=== PATIENT | male | born 1965 | race Caucasian/White ===

== ENCOUNTER 2017-12-21 05:18 | Inpatient (IN) | payer OTHER ==
[2017-12-21] VITALS (17 sets, daily range): BP systolic 112–154; BP diastolic 58–97
[~2017-12-21] VITALS: Ht 180.3 cm; Wt 133.4 kg
[2017-12-21] MEDS ORDERED: TRANEXAMIC ACID 1,500 MG in IV NS 0.9% 50 ML IV ONE (07:00)
[2017-12-21] MEDS ORDERED: MIDAZOLAM HCL 2 MG/2ML VIAL ONE ×3 (07:16→13:17)
--- NOTE | 2017-12-21 07:46 | NUR ---
MS/RN OPENING NOTE PATIENT IN BED IN STABLE CONDITION. A/O X 4. NO SIGNS OF ACUTE DISTRESS. NO COMPLAIN OF PAIN OR DISCOMFORT. ADMITTED FOR LEFT KNEE ARTHROPLASTY SCHEDULED TO BE DONE TODAY AROUND 9:30AM. CONTINENT OF BOWEL AND BLADDER. NOTED WITH INTACT SKIN. ALL NEEDS ATTENDED TO. CALL LIGHT WITHIN REACH. WILL CONTINUE TO MONITOR TO ENSURE SAFETY.
[2017-12-21] MEDS ORDERED: HYDR-548 PO (08:45)
[2017-12-21] MEDS ORDERED: AMLO1CAP5 PO (08:45)
[2017-12-21] MEDS ORDERED: OXYC40TA50 PO (08:45)
[2017-12-21] MEDS ORDERED: ALLO300T2 PO (08:45)
[2017-12-21] MEDS ORDERED: IV NS 0.9% 1,000 ML IV PRN (11:31)
[2017-12-21] MEDS ORDERED: MAGNESIUM HYDROXIDE 30 ML UDC PO PRN (12:00)
[2017-12-21] MEDS ORDERED: ZOLPIDEM TARTRATE 5 MG TABLET PO PRN (12:00)
[2017-12-21] MEDS ORDERED: ACETAMINOPHEN ES 500 MG TABLET PO ONE (12:00)
[2017-12-21] MEDS ORDERED: CELECOXIB 100 MG CAPSULE PO ONE (12:00)
[2017-12-21] MEDS ORDERED: HYDROMORPHONE INJ 0.5 MG/0.5 ML SYRINGE IV PRN (12:00)
[2017-12-21] MEDS ORDERED: Z GUARD REMEDY 2 OZ OINT TP PRN (12:00)
[2017-12-21] MEDS ORDERED: ACETAMINOPHEN 325 MG TABLET PO PRN (12:00)
[2017-12-21] MEDS ORDERED: METOCLOPRAMIDE HCL 10 MG/2 ML VIAL IV ONE (12:00)
[2017-12-21] MEDS ORDERED: MAG HYDROX/AL HYDROX/SIMETH 30 ML UDC PO PRN (12:00)
[2017-12-21] MEDS ORDERED: oxyCODONE HCL SR 10MG TAB.SR.12H PO ONE (12:00)
[2017-12-21] MEDS ORDERED: ONDANSETRON HCL/PF 4 MG/2 ML VIAL IVP PRN ×2 (12:00→19:30)
[2017-12-21] MEDS ORDERED: MORPHINE SULFATE INJ 2 MG/ML DISP.SYRIN IV PRN (12:00)
[2017-12-21] MEDS ORDERED: KETOROLAC TROMETHAMINE INJ 30 MG/ML VIAL ONE ×2 (12:42→19:02)
[2017-12-21] MEDS ORDERED: MORPHINE SULFATE INJ 4 MG/ML DISP.SYRIN ONE (12:43)
[2017-12-21] MEDS ORDERED: BUPIVACAINE 0.5 % PF 150 MG/30 ML VIAL ONE (12:43)
[2017-12-21] MEDS ORDERED: BACITRACIN 50000 UNITS/VIAL ONE (12:43)
--- NOTE | 2017-12-21 12:45 | NUR ---
MS/RN PATIENT LEFT FOR SURGERY PATIENT TRANSFERRED TO OR FOR LEFT KNEE ARTHROPLASTY PROCEDURE ACCOMPANIED BY 2 OR STAFF VIA BED. A/O X 4. NO SIGNS OF ACUTE DISTRESS. NO COMPLAIN OF PAIN OR DISCOMFORT.
[2017-12-21] MEDS ORDERED: FENTANYL PF 250MCG/5ML AMPUL ONE (13:17)
[2017-12-21] MEDS ORDERED: METOCLOPRAMIDE HCL 10 MG/2 ML VIAL ONE (13:17)
[2017-12-21 13:29] LABS: BASOPHILS # (AUTO) 0.1 /CMM (0.0-0.2); BASOPHILS % (AUTO) 0.8 % (0.0-2.0); EOSINOPHILS # (AUTO) 0.2 /CMM (0.0-0.7); EOSINOPHILS % (AUTO) 3.5 % (0.0-6.0); HEMATOCRIT 40 % (39-51); HEMOGLOBIN 13.9 g/dL (13.5-17.5); LYMPHOCYTES # (AUTO) 2.1 /CMM (0.8-4.8); LYMPHOCYTES % (AUTO) 33.2 % (20.0-44.0); MEAN CORPUSCULAR HEMOGLOBIN 32 PG (26.0-33.0); MEAN CORPUSCULAR HGB CONC 35 g/dl (31.0-36.0); MEAN CORPUSCULAR VOLUME 93 fL (80-96); MONOCYTES # (AUTO) 0.5 /CMM (0.1-1.30); MONOCYTES % (AUTO) 8.5 % (2.0-12.0); NEUTROPHILS # (AUTO) 3.4 /CMM (1.8-8.9); PLATELET COUNT (AUTO) 205 /CMM (150-450); RDW COEFFICIENT OF VARIATION 12.7 (11.5-15.0); WHITE BLOOD COUNT (AUTO) 6.3 K/uL (4.3-11.0)
[2017-12-21 13:33] LABS: CALCIUM, SERUM 8.7 mg/dL (8.5-10.1); CREATININE 1.5 mg/dL (0.6-1.3); MAGNESIUM 1.9 mg/dL (1.8-2.4); POTASSIUM 4.1 mmol/L (3.5-5.1)
[2017-12-21] MEDS ORDERED: SEVOFLURANE 250 ML BOTTLE IH ONE (13:35)
[2017-12-21] MEDS ORDERED: ENOXAPARIN SODIUM 40 MG/0.4 ML DISP.SYRIN SQ SCH (13:37)
[2017-12-21 13:38] LABS: INR 0.9 (0.87-1.13)
--- NOTE | 2017-12-21 13:40 | NUR ---
MS/RN LOVENOX NON ADMIN UNABLE TO ADMINISTER LOVENOX SECONDARY TO PATIENT IN OR FOR LEFT KNEE ARTHROPLASTY.
[2017-12-21] MEDS ORDERED: TRANEXAMIC ACID 1,500 MG in SODIUM CHLORIDE IRRIG SOLUTION 85 ML IR ONE (14:30)
[2017-12-21] MEDS ORDERED: ANESTHESIA TRAY IN PYXIS 1 EA TRAY MC ONE (18:01)
--- NOTE | 2017-12-21 18:47 | NUR ---
MS/RN CLOSING NOTE SPOKE WITH OSMAN FROM O.R. PER OSMAN PATIENT STILL IN O.R. ROOM HAVING LEFT KNEE ARTHROPLASTY PROCEDURE. WILL ENDORSE TO NEXT SHIFT FOR CONTINUITY OF CARE.
[2017-12-21] MEDS ORDERED: HYDROMORPHONE 1 MG/1 ML DISP.SYRIN ONE (18:57)
[2017-12-21] MEDS ORDERED: AMBIEN 5 MG TABLET PO PRN (19:30)
[2017-12-21] MEDS ORDERED: IV D5/0.45 NACL 1,000 ML IV PRN (19:30)
[2017-12-21] MEDS ORDERED: KETOROLAC TROMETHAMINE INJ 30 MG/ML VIAL IV ONE (19:30)
[2017-12-21] MEDS ORDERED: HYDROCODONE/APAP 5/325MG 1 EACH TABLET PO PRN (19:30)
[2017-12-21] MEDS ORDERED: COLACE 100 MG CAPSULE PO PRN (19:30)
[2017-12-21] MEDS ORDERED: oxyCODONE IR immediate release 5 MG PO ONE (19:30)
[2017-12-21] MEDS ORDERED: TYLENOL 650 MG TABLET PO PRN (19:30)
[2017-12-21] MEDS ORDERED: DULCOLAX 10 MG/SUPP.RECT RC PRN (19:30)
--- NOTE | 2017-12-21 19:30 | NUR ---
MS RN NOTES: RECEIVED PATIENT FROM SENIOR AIR DIRECTORMICHAEL. S/P LEFT TOTAL KNEE ARTHROPLASTY WITH REMOVAL OF PREVIOUS HARDWARE BY DR WILKINS. PATIENT WAS TRANSFERRED TO MS FLOOR VIA GENO, AOX4, ON ROOM AIR, BREATHING EVEN AND UNLABORED. APPEARS CALM AND IN NO DISTRESS, BUT STATES THAT HE HAS MODERATE PAIN OVER LEFT KNEE SCALED AT 5-6/10. PIV OVER LEFT HAND G 20 INTACT AND PATENT TO FLUSH. GUSTAFSON CATHETER IN PLACE DRAINING CLEAR YELLOW URINE. ATTACHED TO VS MONITORING MACHINE AND O2 SAT MONITORING, VS STABLE. INITIAL O2 AT 92%, HOOKED TO O2 AT 2 LPM VIA NC. LEFT KNEE WITH CLEAN AND INTACT DRESSING, SECURED WITH DAVID BANDAGE AND IN KNEE IMMOBILIZER. ELEVATED LEG TO COMFORT. PROVIDED FOR COMFORT AND SAFETY. BED IN LOWEST AND LOCKED POSITION. SIDERAILS UP X3, CALL LIGHT WITHIN REACH. WILL CONT TO MONITOR.
[2017-12-21] MEDS: ASPIRIN 600 MG/SUPP.RECT RC ONE ×2 (20:21→22:55)
--- NOTE | 2017-12-21 20:30 | NUR ---
RN NOTES: KETOROLAC IV WAS NON ADMIN IN [facility]/ NOT ADMINISTERED AT THIS TIME. PER LEILA RODRIGUEZ FROM OR, KETOROLAC 30 MG IV WAS LAST GIVEN AT 1900 PM AT RR.
--- NOTE | 2017-12-21 20:34 | NUR ---
RN NOTES: PT'S PAIN OVER LEFT KNEE SCALED AT 5-6/10. AGREED TO TAKE THE OXYCODONE 5 MG PO BUT REFUSED THE ASA SUPPOSITORY. RISKS AND BENEFITS EXPLAINED, PT STILL REFUSING.
--- NOTE | 2017-12-21 21:00 | NUR ---
RN NOTES: CIRCULATION, MOTION, SENSATION: PATIENT'S PEDAL PULSES CHECKED, BILATERALLY STRONG, NORMAL. CAP REFILL ON LE FEET/ TOES LESS THAN 3 SEC. PATIENT NOTED TO HAVE NORMAL SENSATION ON LEFT FOOT, HEELS AND TOES, SAME WITH THE RIGHT FOOT. PATIENT HAS MILD WEAKNESS OF LEFT LOWER EXTREMITY. WITH LEFT KNEE IMMOBILIZER, DRESSING INTACT.
[2017-12-21] MEDS: CELECOXIB 100 MG CAPSULE PO SCH (21:52)
--- NOTE | 2017-12-21 22:00 | NUR ---
RN NOTES: CIRCULATION, MOTION, SENSATION: PATIENT'S PEDAL PULSES CHECKED, BILATERALLY STRONG, NORMAL. CAP REFILL ON LE FEET/ TOES LESS THAN 3 SEC. PATIENT STILL WITH NORMAL SENSATION ON LEFT FOOT, HEELS AND TOES, SAME WITH THE RIGHT FOOT. PATIENT HAS MILD WEAKNESS OF LEFT LOWER EXTREMITY. WITH LEFT KNEE IMMOBILIZER, DRESSING INTACT. NO BLEEDING OR DISCHARGE NOTED FROM DRESSING.
[2017-12-21] MEDS ORDERED: DIAZ10TA4 PO (22:02)
[2017-12-21] MEDS ORDERED: GABA800T2 PO (22:02)
--- NOTE | 2017-12-21 22:15 | NUR ---
RN NOTES: SPOKE TO DR MERCADO RE PATIENT'S REQUEST TO HAVE GABAPENTIN 800 MG TID, ORDER MADE. ONE DOSE TO BE GIVEN NOW.
[2017-12-21] MEDS ORDERED: GABAPENTIN 400 MG CAPSULE PO ONE (22:30)
[2017-12-21] MEDS: ANCEF 1 G in IV D5W 50 ML IV SCH (22:55)
[2017-12-21] MEDS: HYDROMORPHONE INJ 0.5 MG/0.5 ML SYRINGE IV PRN (23:03)
[2017-12-22] VITALS (8 sets, daily range): BP systolic 125–143; BP diastolic 61–82
[2017-12-22] MEDS: KETOROLAC TROMETHAMINE INJ 30 MG/ML VIAL IV PRN ×2 (03:19→23:44)
[2017-12-22] MEDS: ANCEF 1 G in IV D5W 50 ML IV SCH (06:36)
[2017-12-22 06:55] LABS: BASOPHILS % (AUTO) 0.2 % (0.0-2.0); HEMATOCRIT 33 % (39-51); HEMOGLOBIN 11.2 g/dL (13.5-17.5); LYMPHOCYTES # (AUTO) 1.2 /CMM (0.8-4.8); LYMPHOCYTES % (AUTO) 8.5 % (20.0-44.0); MEAN CORPUSCULAR HEMOGLOBIN 32 PG (26.0-33.0); MEAN CORPUSCULAR HGB CONC 34 g/dl (31.0-36.0); MEAN CORPUSCULAR VOLUME 94 fL (80-96); MONOCYTES # (AUTO) 0.7 /CMM (0.1-1.30); MONOCYTES % (AUTO) 4.9 % (2.0-12.0); NEUTROPHILS # (AUTO) 11.7 /CMM (1.8-8.9); NEUTROPHILS % (AUTO) 86.4 % (43.0-81.0); PLATELET COUNT (AUTO) 176 /CMM (150-450); RDW COEFFICIENT OF VARIATION 12.6 (11.5-15.0); RED BLOOD CELL COUNT(AUTO) 3.49 MIL/uL (4.5-6.0); WHITE BLOOD COUNT (AUTO) 13.6 K/uL (4.3-11.0)
[2017-12-22 06:59] LABS: CALCIUM, SERUM 7.7 mg/dL (8.5-10.1); CREATININE 1.7 mg/dL (0.6-1.3); MAGNESIUM 1.9 mg/dL (1.8-2.4); PHOSPHORUS 2.3 mg/dL (2.5-4.9); POTASSIUM 5.3 mmol/L (3.5-5.1)
--- NOTE | 2017-12-22 07:02 | NUR ---
MS RN CLOSING NOTES: PATIENT IN BED, AOC4, ON O2 AT 2 LPM VIA NC, BREATHING EVEN AND UNLABORED. PIV OVER L HAND G 20 INTACT AND PATENT, INFUSING WELL WITH D5 1/2 NS RUNNING AT 75 ML/HR. LEFT KNEE WITH DRESSING, IMMOBILIZER IN PLACE. LE DORSAL PEDAL PULSES CHECKED, BILATERALLY STRONG AND EQUAL, CAP REFILL LESS THAN 3 SEC. ALSO CHECKED REGULARLY FOR SENSATION. DUE MEDS GIVEN, PROVIDED FOR COMFORT AND SAFETY. BED IN LOWEST AND LOCKED POSITION, SIDERAILS UP X 3. CALL LIGHT WITHIN REACH. WILL ENDORSE TO AM RN FOR JOSE RAFAEL.
[2017-12-22 07:29] LABS: THYROID STIMULATING HORMONE 0.162 uIU/mL (0.358-3.74)
--- NOTE | 2017-12-22 08:00 | NUR ---
MED SURG 3 AM NOTE RECEIVED PATIENT IN BED RESTING, EASILY AROUSED. ALERT AND ORIENTED X 3. VITAL SIGNS STABLE, RESPIRATIONS EVEN AND UNLABORED, ON 2L OXYGEN VIA NASAL CANNULA WITH OXYGEN SATURATION OF 96%. LEFT HAND 20G PATENT AND INFUSING D5 1/2 NS, NO SIGNS OR SYMPTOMS OF COMPLICATIONS. GUSTAFSON CATHETER PATENT AND FREE FLOWING YELLOW CLEAR URINE. NO SIGNS OR SYMPTOMS OF PAIN OR DISTRESS. LEFT KNEE SURGICAL SITE DRESSING INTACT WITHOUT EVIDENCE OF DRAINAGE OR BLEEDING. BED IN LOW POSITION WITH SIDE RAILS UP X 2, CALL LIGHT WITHIN REACH.
[2017-12-22] MEDS: IV NS 0.9% 1,000 ML IV PRN ×3 (08:20→19:49)
[2017-12-22] MEDS: CELECOXIB 100 MG CAPSULE PO SCH ×2 (08:25→16:33)
[2017-12-22] MEDS: PANTOPRAZOLE 40 MG VIAL IV SCH (08:25)
[2017-12-22] MEDS: ASPIRIN 325 MG TABLET PO SCH ×2 (08:25→16:33)
[2017-12-22] MEDS: GABAPENTIN 400 MG CAPSULE PO SCH ×3 (08:25→16:34)
[2017-12-22] MEDS: HYDROMORPHONE INJ 0.5 MG/0.5 ML SYRINGE IV PRN (08:28)
[2017-12-22] MEDS ORDERED: K PHOS NEUTRAL 250 MG TABLET PO ONE (11:30)
[2017-12-22] MEDS ORDERED: HYDROCODONE/APAP 10/325MG 1 EA TABLET PO PRN (16:00)
[2017-12-22] MEDS ORDERED: Medication Not On Formulary EA (Gabapentin 1 TAB) PO SCH (17:00)
--- NOTE | 2017-12-22 18:20 | NUR ---
TOOL FILER HAND 3 CLOSING NOTE PATIENT IN BED, ALERT AND ORIENTED X 3. VITAL SIGNS STABLE, RESPIRATIONS EVEN AND UNLABORED AND ON ROOM AIR. PATIENT DENIES PAIN OR DISTRESS. LEFT HAND 20G PATENT AND INFUSING 0.9NS AT 200ML/HOUR, WITHOUT COMPLICATION. LEFT KNEE WITH DRESSING INTACT. BILATERAL DORSAL PEDAL PULSES PALPABLE 2+ AND EQUAL BILATERALLY, BLE TEMPERATURE WARM TO TOUCH, CAPILLARY REFILL LESS THAN 3 SECONDS. ALL MEDS GIVEN AND NEEDS MET. BED IN LOW POSITION WITH SIDE RAILS UP X 2, CALL LIGHT WITHIN REACH.
--- NOTE | 2017-12-22 19:50 | NUR ---
MS/RN OPENING NOTES PATIENT AWAKE, ALERTX3, ABLE TO VERBALIZE NEEDS. NO PAIN REPORTED AND NO GRIMACE.REPORTED TOLERABLE PAIN. ON CPM MACHINE ORDERED FOR INTERMITTENT USE TOLERATED. IV ON LEFT HAND WITH NO S/S OF INFILTRATION. IV FLUIDS REPLACED. SKIN WARM TO TOUCH, KEEP PATIENT COMFORTABLE. BED IN LOCK POSITION. GUSTAFSON CATHETER DRAINING LIGHT YELLOW COLOR URINE WILL CONTINUE TO MONITOR. CALL LIGHTS WITHIN REACH. BED IN LOCK POSITION.
--- NOTE | 2017-12-22 20:00 | NUR ---
MS/RN NOTES POTASSIUM LEVEL ELEVATED AT 5.3h, AM RN ENDORSED, MD ANTONIO CONTACTED AND ORDERED FOR KAYEXELATE 30G PO AND CHECK POTASSIUM LEVEL IN AM. CHARGE NURSE INFORM FOR MEDICATION ORDER.
[2017-12-22] MEDS ORDERED: SODIUM POLYSTYRENE SULFONATE 15 G/60 ML BOTTLE PO ONE (21:00)
[2017-12-22] MEDS ORDERED: oxyCODONE HCL SR 40MG TAB.SR.12H PO PRN (21:00)
--- NOTE | 2017-12-22 21:34 | NUR ---
MS/RN NOTES PATIENT REPORTED PAIN ON LEFT LEG,06/28, NORCO 10-325MG PO GIVEN, WILL MONITOR EFFECTIVENESS, KAYEXELATE 30G GOIVEN PO, PATIENT ABLE TO TAKE PO MED. HOB ELEVATED.
--- NOTE | 2017-12-22 22:06 | NUR ---
MS/RN NOTES PATIENT REQUESTED MEDICATION FOR SLEEP, ALERT, ORIENTED, ABLE TO VERBALIZE NEEDS, WILL MONITOR AND CHECK EFFECTIVENESS.
--- NOTE | 2017-12-22 23:44 | NUR ---
MS/RN NOTES PATIENT REPORTED PAIN AND AROUSE FROM SLEEP, NEEDED MEDICATION FOR SEVERE PAIN TO GIVE.
[2017-12-23] MEDS: IV NS 0.9% 1,000 ML IV PRN ×2 (00:45→06:11)
[2017-12-23] MEDS: HYDROMORPHONE INJ 0.5 MG/0.5 ML SYRINGE IV PRN ×3 (02:05→14:31)
--- NOTE | 2017-12-23 02:28 | NUR ---
ms/rn notes patient awake, reported improve pain, observe watching tv and will monitor changes.
[2017-12-23 06:16] LABS: BASOPHILS % (AUTO) 0.4 % (0.0-2.0); EOSINOPHILS # (AUTO) 0.1 /CMM (0.0-0.7); EOSINOPHILS % (AUTO) 0.4 % (0.0-6.0); HEMATOCRIT 29 % (39-51); LYMPHOCYTES # (AUTO) 2.2 /CMM (0.8-4.8); LYMPHOCYTES % (AUTO) 19.1 % (20.0-44.0); MEAN CORPUSCULAR HEMOGLOBIN 33 PG (26.0-33.0); MEAN CORPUSCULAR HGB CONC 35 g/dl (31.0-36.0); MEAN CORPUSCULAR VOLUME 94 fL (80-96); MONOCYTES # (AUTO) 0.8 /CMM (0.1-1.30); MONOCYTES % (AUTO) 7.3 % (2.0-12.0); NEUTROPHILS # (AUTO) 8.4 /CMM (1.8-8.9); NEUTROPHILS % (AUTO) 72.8 % (43.0-81.0); PLATELET COUNT (AUTO) 154 /CMM (150-450); RDW COEFFICIENT OF VARIATION 12.9 (11.5-15.0); RED BLOOD CELL COUNT(AUTO) 3.08 MIL/uL (4.5-6.0); WHITE BLOOD COUNT (AUTO) 11.6 K/uL (4.3-11.0)
[2017-12-23 06:33] LABS: ALBUMIN 2.7 g/dL (3.4-5.0); BILIRUBIN,TOTAL 0.2 mg/dL (0.2-1.0); CALCIUM, SERUM 7.7 mg/dL (8.5-10.1); CREATININE 1.4 mg/dL (0.6-1.3); PHOSPHORUS 2.1 mg/dL (2.5-4.9); POTASSIUM 4.5 mmol/L (3.5-5.1); TOTAL PROTEIN, SERUM 5.9 g/dL (6.4-8.2)
--- NOTE | 2017-12-23 06:36 | NUR ---
308 ms/rn notes Patient in bed, pain managment monitoirng, reported pain , monitoring for effectiveness,Unable to sleep well even after given prescribed Ambien. Assisted to baathroom. Will continue monitoring, Safety interventions provided. Call lights within reach, bed in lock positon. Walker used for safety. will continue to monitor, Will endorse to am rn for ninoska.
--- NOTE | 2017-12-23 07:12 | NUR ---
MS RN OPENING NOTES RECEIVED PT FROM NIGHTSHIFT NURSE IN STABLE CONDITION. PT IS A/O X4. NO SOB OR SIGNS OF DISTRESS NOTED. BREATHING IS EVEN AND UNLABORED. PT IS ON RA AND SATING WELL ABOVE 95%. GUSTAFSON CATHETER NOTED TO BE DRAINING CLEAR YELLOW URINE. WILL REMOVE @ 1300 ORDERED. SURGICAL DRESSING NOTED TO BE CLEAN, DRY, AND INTACT. PT DENIES ANY PAIN AT THIS TIME. IV NOTED TO BE PATENT AND INTACT INFUSING NS @200ML. PT TOLERATING INFUSION WELL. NO REDNESS OR SIGNS OF INFILTRATION NOTED. BED IN LOW LOCKED POSITION, SIDE RAILS UP X2, CALL LIGHT WITHIN REACH. WILL CONTINUE TO MONITOR
[2017-12-23 08:00] VITALS: BP 164/92
[2017-12-23] MEDS: GABAPENTIN 400 MG CAPSULE PO SCH ×2 (08:58→13:39)
[2017-12-23] MEDS: ASPIRIN 325 MG TABLET PO SCH (08:58)
[2017-12-23 08:59] VITALS: BP 164/92
[2017-12-23] MEDS: CELECOXIB 100 MG CAPSULE PO SCH (08:59)
[2017-12-23] MEDS ORDERED: ALLOPURINOL 100 MG TABLET PO SCH (09:00)
[2017-12-23] MEDS ORDERED: AMLODIPINE BESYLATE 5 MG TABLET PO SCH (09:00)
[2017-12-23] MEDS ORDERED: BENAZEPRIL HCL 10 MG TABLET PO SCH (09:00)
[2017-12-23] MEDS: PANTOPRAZOLE 40 MG VIAL IV SCH (09:01)
[2017-12-23] MEDS ORDERED: K PHOS NEUTRAL 250 MG TABLET PO ONE (13:00)
--- NOTE | 2017-12-23 13:27 | NUR ---
MS RN NOTES GUSTAFSON CATHETER REMOVED PER MD ORDER AND PROTOCOL. PT ABLE TO VOING 100CC OF CLEAR YELLOW URINE. WILL CONTINUE TO MONITOR
--- NOTE | 2017-12-23 15:39 | NUR ---
MS PNEUMATIC TOOL OPERATOR NOTES PT WAS DISCHARGED FROM FACILITY IN STABLE CONDITION. ALL NEEDS WERE MET DURING SHIFT AND ORDERS CARRIED OUT ACCORDINGLY. ALL DUE MEDS GIVEN. DISCHARGE INSTRUCTIONS PROVIDED TO PT USING EXIT CARE. PT VERBALIZED UNDERSTANDING OF ALL DISCHARGE INSTRUCTIONS AND SIGNED ALL RESPECTIVE PAPERWORK. HE LEFT WITH ALL BELONGINGS. SURGICAL DRESSING REMAINED CLEAN, DRY, AND INTACT. VITALS STABLE THROUGHOUT SHIFT. HE WAS SAFELY ESCORTED OFF THE HOSPITAL PREMISES AND LEFT VIA PRIVATE VEHICLE DRIVEN BY HIS DAUGHTER
== END 2017-12-23 15:15 | disposition home or self-care (01) | DRG 469 ==
LOC: DS 05:18 → MED 05:34
PROVIDERS: ADMIT Orthopaedic Surgery; ATTEND Orthopaedic Surgery
PROC: 0SRD0J9 Replacement of Left Knee Joint with Synthetic Substitute, Cemented, Open Approach (ICD-10-PCS; principal; 2017-12-21 13:00)
DX: M17.12 Unilateral primary osteoarthritis, left knee (principal); N17.0 Acute kidney failure with tubular necrosis; E66.01 Morbid (severe) obesity due to excess calories; D68.59 Other primary thrombophilia; Z68.41 Body mass index [BMI] 40.0-44.9, adult; E87.5 Hyperkalemia; N18.3 Chronic kidney disease, stage 3 (moderate); I12.9 Hypertensive chronic kidney disease with stage 1 through stage 4 chronic kidney disease, or unspecified chronic kidney disease; Z87.891 Personal history of nicotine dependence; E66.9 Obesity, unspecified; R79.89 Other specified abnormal findings of blood chemistry; E05.90 Thyrotoxicosis, unspecified without thyrotoxic crisis or storm
CPT/HCPCS: 36415; 71045-TC; 73560-TC; 80048-TC; 80053-TC; 80061-TC; 83735-TC; 84100-TC; 84443-TC; 85025-TC; 85610-TC; 85730-TC; 86850-TC; 86921-TC; 87081-TC; 94799-TC; 97116-TC; 97530-TC; 97760-TC; A4217; C9113; J0690; J1170; J1885; J2250; J2270; J2765; J3010; J3490; J7030; J7060; Z7610

== ENCOUNTER 2018-03-04 19:07 | Inpatient (IN) | payer OTHER ==
[~2018-03-04] VITALS: Ht 180.3 cm; Wt 142.9 kg
[~2018-03-04 19:07] MED LIST: ALLO300T2 PO; AMLO1CAP5 PO; DIAZ10TA4 PO; GABA800T2 PO; HYDR-548 PO; OXYC40TA50 PO
--- NOTE | 2018-03-04 19:20 | NUR ---
PT BB SELF FROM HOME C/O LL KNEE REDNESS AND PAIN 04/28. PT STATES HE WAS SENT BY HIS SURGEON WHO PERFORMED THE KNEE SURGERY. PT STATES HE WAS RECENTLY DISCHARGED FROM AN ACUTE HOSPITAL FOR THE SAME ISSUE. MILD AMOUNT OF EXUDATE NOTED ON GAUZE. PT AMBULATED WITH STEADY GAIT TO ER BED 7. SKIN WNL. PT IS AAOX4. RESP EVEN AND UNLABORED. NO S/S OF ACUTE DISTRESS NOTED. PT GOWNED AND PLACED ON MONITOR. PT SAFETY AND COMFORT MEASURES IN PLACE. AWAITING MD FOR EVAL.
--- NOTE | 2018-03-04 19:57 | NUR ---
CALLED NURSING INTERNET RESEARCHER AND REQUESTED A MED SURG BED FOR THIS PT
[2018-03-04] MEDS ORDERED: IV NS 0.9% 1,000 ML BAG IV ONE (20:00)
[2018-03-04 20:06] LABS: BASOPHILS # (AUTO) 0.1 /CMM (0.0-0.2); BASOPHILS % (AUTO) 0.7 % (0.0-2.0); EOSINOPHILS % (AUTO) 2.1 % (0.0-6.0); HEMATOCRIT 40 % (39-51); HEMOGLOBIN 13.5 g/dL (13.5-17.5); LYMPHOCYTES # (AUTO) 1.7 /CMM (0.8-4.8); LYMPHOCYTES % (AUTO) 21.2 % (20.0-44.0); MEAN CORPUSCULAR HGB CONC 34 g/dl (31.0-36.0); MEAN CORPUSCULAR VOLUME 89 fL (80-96); MONOCYTES # (AUTO) 0.3 /CMM (0.1-1.30); MONOCYTES % (AUTO) 3.8 % (2.0-12.0); NEUTROPHILS # (AUTO) 5.7 /CMM (1.8-8.9); NEUTROPHILS % (AUTO) 72.2 % (43.0-81.0); PLATELET COUNT (AUTO) 328 /CMM (150-450); RDW COEFFICIENT OF VARIATION 13.6 (11.5-15.0); RED BLOOD CELL COUNT(AUTO) 4.48 MIL/uL (4.5-6.0); WHITE BLOOD COUNT (AUTO) 7.9 K/uL (4.3-11.0)
--- NOTE | 2018-03-04 20:09 | NUR ---
KASEY ALEXANDER SPOKE WITH DR. ANDINO REGARDING ADMISSION OF PT.
--- NOTE | 2018-03-04 20:34 | NUR ---
PT REFUSED PRE-OP CHECK LIST AT THIS TIME
[2018-03-04 20:37] LABS: ALBUMIN 3.5 g/dL (3.4-5.0); BILIRUBIN,DIRECT 0.1 mg/dL (0.0-0.2); BILIRUBIN,TOTAL 0.2 mg/dL (0.2-1.0); CALCIUM, SERUM 9.7 mg/dL (8.5-10.1); CREATININE 1.4 mg/dL (0.6-1.3); POTASSIUM 4.1 mmol/L (3.5-5.1); TOTAL PROTEIN, SERUM 8.8 g/dL (6.4-8.2)
--- NOTE | 2018-03-04 20:40 | NUR ---
PT REFUSED TO ANSWER QUESTIONS REGARDING PRE-OP CHECKLIST AND REQUESTS TO SPEAK TO THE SURGEON PRIOR TO SIGNING ANY PAPERS OR ANSWERING ANY QUESTIONS RELATED TO SURGERY.
[2018-03-04 20:58] LABS: INR 0.96 (0.87-1.13)
[2018-03-04] MEDS ORDERED: VANCOMYCIN 0.75 GM in IV D5W 250 ML IV SCH (21:00)
[2018-03-04] MEDS ORDERED: ACETAMINOPHEN 325 MG TABLET PO PRN (21:00)
[2018-03-04] MEDS ORDERED: Z GUARD REMEDY 2 OZ OINT TP PRN (21:00)
[2018-03-04] MEDS ORDERED: DIAZEPAM 10 MG TABLET PO SCH (21:00)
[2018-03-04] MEDS ORDERED: MAG HYDROX/AL HYDROX/SIMETH 30 ML UDC PO PRN (21:00)
[2018-03-04] MEDS ORDERED: HYDROCODONE/APAP 10/325MG 1 EA TABLET PO PRN (21:00)
[2018-03-04] MEDS ORDERED: PIPERACILLIN /TAZOBACTAM 3.375 G in IV D5W 100 ML IV SCH (21:00)
[2018-03-04] MEDS ORDERED: Medication Not On Formulary EA (Oxycodone Hcl (Oxycontin) 40 MG) PO PRN (21:00)
[2018-03-04] MEDS ORDERED: ONDANSETRON HCL/PF 4 MG/2 ML VIAL IVP PRN (21:00)
[2018-03-04] MEDS ORDERED: MAGNESIUM HYDROXIDE 30 ML UDC PO PRN (21:00)
[2018-03-04] MEDS ORDERED: DEXTROSE 50%-WATER 50 ML DISP.SYRIN IV PRN (21:00)
--- NOTE | 2018-03-04 21:00 | NUR ---
SURGICAL TEAM BEDSIDE TO TAKE PT TO OR.
--- NOTE | 2018-03-04 21:09 | NUR ---
PT ACCEPTED TO ANSWER PRE-OP QUESTIONS. PRE-OP CHECKLIST COMPLETED
--- NOTE | 2018-03-04 21:13 | NUR ---
PT IS ASSIGNED TO MED SURG RM#: [id number].
--- NOTE | 2018-03-04 21:16 | NUR ---
OR NURSES BEDSIDE WITH PT
[2018-03-04] MEDS ORDERED: ANESTHESIA TRAY IN PYXIS 1 EA TRAY MC ONE (21:20)
--- NOTE | 2018-03-04 21:20 | NUR ---
REPORT GIVEN TO COLLIN BAKER FOR JOSE RAFAEL. PT TAKEN TO SURGERY BY THE OR TEAM. REPORT GIVEN TO OR NURSES FOR JOSE RAFAEL.
[2018-03-04] MEDS ORDERED: SUCCINYLCHOLINE CHLORIDE 20 MG/ML VIAL ONE (21:21)
[2018-03-04] MEDS ORDERED: BACITRACIN 50000 UNITS/VIAL ONE (21:22)
[2018-03-04] MEDS ORDERED: ROCURONIUM BROMIDE 50 MG/5 ML ONE (21:43)
[2018-03-04] MEDS ORDERED: VANCOMYCIN 1 GM VIAL ONE (21:45)
[2018-03-04] MEDS ORDERED: VANCOMYCIN 2 GM in IV NS 0.9% 500 ML IV ONE (23:00)
[2018-03-04 23:15] VITALS: BP 147/89
[2018-03-04] MEDS ORDERED: MORPHINE SULFATE INJ 2 MG/ML DISP.SYRIN IV PRN (23:30)
--- NOTE | 2018-03-04 23:40 | NUR ---
MS RN NOTE PT ARRIVED TO FLOOR FROM OR VIA GURNEY. A/O X3 ABLE TO MAKE NEEDS KNOWN. BREATHING EVENLY AND UNLABORED ON RA, NO SIGNS OF SOB OR DISTRESS. IV ACCESS IS INTACT AND PATENT. PT IS S/P I&D OF LEFT KNEE. DRESSING WITH DAVID BAND IS INTACT WITH NO SIGNS OF LEAKAGE, WOUND-VAC IS IN PLACE. PLANT UTILITY PERSON WAS CONTACTED FOR WOUND VAC CANISTER. PT AMBULATED FROM BED TO RESTROOM WITH THE AID OF THE WALKER AND HAD A BM. ORDERS TO BE CARRIED OUT. PT IS TOLERATING PO FLUIDS WELL, NO COMPLAINTS OF NAUSEA. BED IS IN LOW AND LOCKED POSITION, CALL LIGHT WITHIN REACH. WILL CONTINUE TO MONITOR PT
[2018-03-05] VITALS (9 sets, daily range): BP systolic 130–180; BP diastolic 73–105
[2018-03-05] MEDS ORDERED: PIPERACILLIN /TAZOBACTAM 3.375 G VIAL IV ONE (00:06)
[2018-03-05] MEDS: BLOOD SUGAR DIAGNOSTIC 1 EACH STRIP IN SCH ×7 (00:09→21:04)
[2018-03-05] MEDS ORDERED: MORPHINE SULFATE INJ 4 MG/ML DISP.SYRIN ONE (00:10)
[2018-03-05] MEDS: IV NS 0.9% 1,000 ML IV PRN (00:10)
[2018-03-05] MEDS ORDERED: MORPHINE SULFATE INJ 4 MG/ML DISP.SYRIN IV PRN (04:30)
[2018-03-05] MEDS: INSULIN REGULAR, HUMAN 100 UNIT/ML 3 ML VIAL SQ PRN ×4 (04:34→17:15)
[2018-03-05] MEDS: HYDROCODONE/APAP 10/325MG 1 EA TABLET PO PRN ×2 (05:49→17:29)
--- NOTE | 2018-03-05 06:56 | NUR ---
MS RN CLOSING NOTE PT IS IN BED RESTING. NO SIGNS OF SOB OR DISTRESS, BREATHING EVENLY AND UNLABORED ON RA. INCENTIVE SPIROMETER AT BEDSIDE, EDUCATION GIVEN. IV ACCESS IS INTACT AND PATENT WITH FLUIDS INFUSING. WOUND VAC IS INTACT AND DRAINING. PAIN MEDICATION WAS GIVEN TO PT. ALL NEEDS WERE ANTICIPATED AND MET. BED IS IN LOW AND LOCKED POSITION, CALL LIGHT WITHIN REACH. WILL ENDORSE TO DAYSHIFT.
--- NOTE | 2018-03-05 07:05 | NUR ---
RN OPENING NOTES RECEIVED PATIENT IN BED, ALERT ORIENTED X4. NO ACUTE DISTRESS NOTES. BREATHING UNLABORED. IV ACCESS PATENT AND INTACT. WOUND VAC INTACT WITH PROPER FUNCTIONING. SAFETY MEASURES IN PLACE. CALL LIGHT WIHIN REACH. WILL CONTINUE TO MONITOR ACCORDINGLY.
[2018-03-05 07:22] LABS: CALCIUM, SERUM 8.9 mg/dL (8.5-10.1); CREATININE 1.3 mg/dL (0.6-1.3); MAGNESIUM 1.8 mg/dL (1.8-2.4); PHOSPHORUS 3.9 mg/dL (2.5-4.9); POTASSIUM 4.4 mmol/L (3.5-5.1)
[2018-03-05] MEDS ORDERED: TYLENOL 650 MG TABLET PO PRN (07:30)
[2018-03-05] MEDS ORDERED: DULCOLAX 10 MG/SUPP.RECT RC PRN (07:30)
[2018-03-05] MEDS ORDERED: AMBIEN 5 MG TABLET PO PRN (07:30)
[2018-03-05] MEDS ORDERED: COLACE 100 MG CAPSULE PO PRN (07:30)
[2018-03-05] MEDS ORDERED: ZOFRAN 4mg/2ML IV PRN (07:30)
[2018-03-05] MEDS ORDERED: FEE PK DOSING 1 MIN EA MC ONE ×2 (07:31→07:47)
[2018-03-05] MEDS ORDERED: PIPERACILLIN /TAZOBACTAM 3.375 G in IV D5W 100 ML IV SCH (08:00)
[2018-03-05 08:08] LABS: BASOPHILS % (AUTO) 0.3 % (0.0-2.0); HEMATOCRIT 35 % (39-51); HEMOGLOBIN 11.7 g/dL (13.5-17.5); LYMPHOCYTES # (AUTO) 1.2 /CMM (0.8-4.8); LYMPHOCYTES % (AUTO) 13.4 % (20.0-44.0); MEAN CORPUSCULAR HGB CONC 33 g/dl (31.0-36.0); MEAN CORPUSCULAR VOLUME 91 fL (80-96); MONOCYTES # (AUTO) 0.2 /CMM (0.1-1.30); MONOCYTES % (AUTO) 2.1 % (2.0-12.0); NEUTROPHILS # (AUTO) 7.7 /CMM (1.8-8.9); NEUTROPHILS % (AUTO) 84.2 % (43.0-81.0); PLATELET COUNT (AUTO) 287 /CMM (150-450); RDW COEFFICIENT OF VARIATION 13.4 (11.5-15.0); RED BLOOD CELL COUNT(AUTO) 3.88 MIL/uL (4.5-6.0); WHITE BLOOD COUNT (AUTO) 9.1 K/uL (4.3-11.0)
--- NOTE | 2018-03-05 08:29 | NUR ---
WOUND CARE CONSULT: PT PRESENTS WITH WOUND VAC TO LEFT KNEE S/P ORTHO SURGERY. VAC FUNCTIONING WELL AT 125mmHg CONTINUOUS SETTING WITH SMALL AMOUNT OF RED DRAINAGE IN CANISTER. LEG IS WRAPPED WITH DAVID WRAP. PT IS TOLERATING VAC WELL. PT ABLE TO ASSIST WITH TURNING AND REPOSITIONING AND IS CONTINENT AT THIS TIME. ALL SKIN PROTECTION MEASURES IN PLACE AND DISCUSSED WITH NURSING STAFF. MD IN AGREEMENT WITH PLAN OF CARE.
[2018-03-05] MEDS: PIPERACILLIN /TAZOBACTAM 3.375 G in IV D5W 50 ML IV SCH ×4 (09:05→23:26)
[2018-03-05] MEDS: AMLODIPINE BESYLATE 5 MG TABLET PO SCH (09:07)
[2018-03-05] MEDS: GABAPENTIN 400 MG CAPSULE PO SCH ×3 (09:07→17:13)
[2018-03-05] MEDS: BENAZEPRIL HCL 10 MG TABLET PO SCH (09:08)
[2018-03-05] MEDS: VANCOMYCIN 1.25 GM in IV D5W 500 ML IV SCH ×2 (09:59→18:06)
[2018-03-05] MEDS ORDERED: VANCOMYCIN 1 GM in IV D5W 250 ML IV SCH (10:00)
[2018-03-05] MEDS: HYDROCODONE/APAP 5/325MG 1 EACH TABLET PO PRN (10:11)
--- NOTE | 2018-03-05 10:51 | NUR ---
Social service consult requested by Med Surg 3 WILMAR Tarango for possible depression. Pt. is a 52 year old male who was admitted to [facility] for left knee infection. SW met with pt. bedside. Pt. is alert and oriented x 4. Pt. is friendly and cooperative with SW during the assessment. Pt. rents a room in a house located at [address] [place] [address]. Pt's emergency contacts are his son Monty and daughter Martha . Pt. denies using alcohol and drugs. Pt. denies feeling depressed. Pt. stated he felt a little depressed yesterday when he came to the hospital out of frustration with the issues he has been having with his knee since surgery. Pt. had a little anxiety before his surgery. Pt. has had workers comp. since 2016 and started he just got approved for knee surgery. Pt. appears a bit frustrated that he has to get a shoulder surgery as well sometime in the near future. Pt. is independent with his ADL's. Pt. is able to ambulate independently but needs his cane for long distance. No other social service needs are requested at this time. SW is available, if needed. NELI updated WILMAR Tarango regarding pt's disposition.
[2018-03-05] MEDS ORDERED: VANCOMYCIN 2 GM in IV D5W 500 ML IV SCH (11:00)
--- NOTE | 2018-03-05 11:50 | NUR ---
RN NOTES SEEN AND EVALUATED BY PETER FOSS WITH NEW ORDERS MADE NOTED AND CARRIED OUT.
--- NOTE | 2018-03-05 18:45 | NUR ---
RN CLOSING NOTES PATIENT IN BED, ALERT ORIENTED X4. NO ACUTE DISTRESS NOTES. BREATHING UNLABORED. IV ACCESS PATENT AND INTACT. WOUND VAC INTACT WITH PROPER FUNCTIONING.DUE MEDICATIONS GIVEN, NO ASE NOTED. SAFETY MEASURES IN PLACE. CALL LIGHT WITHIN REACH. WILL CONTINUE TO MONITOR ACCORDINGLY.WILL ENDORSE TO NIGHT NURSE FOR CONTINUITY OF CARE.
--- NOTE | 2018-03-05 19:30 | NUR ---
MS RN OPENING NOTES: PATIENT IN BED, AOX4, ON ROOM AIR, BREATHING EVEN AND UNLABORED. APPEARS CALM AND IN NO DISTRESS, STATES THAT LEFT KNEE PAIN FEELS BETTER, NOW SCALES PAIN AT 4/10, WITH THROBBING QUALITY. PIV OVER R HAND G20 INTACT AND INFUSING WELL WITH NS RUNNING AT 75 ML/HR. LEFT KNEE WOUND ATTACHED TO WOUND VAC DRAIN,WITH CLEAN AND INTACT DRESSING SECURED WITH DAVID BANDAGE, ELEVATED ON A PILLOW. NOTED ABOUT 55 ML OF SEROSANGUINEOUS DRAINAGE IN COLLECTION CHAMBER. PROVIDED FOR COMFORT AND SAFETY. BED IN LOWEST AND LOCKED POSITION, SIDERAILS UP X 3, CALL LIGHT WITHIN REACH, WILL CONT TO MONITOR.
--- NOTE | 2018-03-05 20:34 | NUR ---
RN NOTES: SONIDO HUMPHREY NP FOR INFECTIOUS DSE AT BEDSIDE TO ASSESS PT.
--- NOTE | 2018-03-05 21:04 | NUR ---
RN NOTES: PATIENT'S BLOOD SUGAR CHECKED AT 197 MG/DL, ADMINISTERED 3 UNITS REGULAR INSULIN. GAVE LIGHT SNACK TO PATIENT.
[2018-03-05] MEDS: *INSULIN REGULAR(HUMULIN R)HUM 100 UNIT/ML VIAL SQ PRN (21:07)
[2018-03-05] MEDS: FENTANYL PF 100MCG/2ML AMPUL IV PRN (22:15)
[2018-03-05] MEDS: ZOLPIDEM TARTRATE 5 MG TABLET PO PRN (23:26)
[2018-03-06] MEDS: BLOOD SUGAR DIAGNOSTIC 1 EACH STRIP IN SCH ×6 (01:00→21:45)
--- NOTE | 2018-03-06 01:50 | NUR ---
RN NOTES: PATIENT REFSUED TO HAVE BLOOD SUGAR CHECKED AT THIS TIME, REQUESTS TO HAVE IT DONE LATER. RISKS AND BENEFITS EXPLAINED, PER PATIENT HE WANTS TO BE ABLE TO SLEEP.
[2018-03-06] MEDS: VANCOMYCIN 1.25 GM in IV D5W 500 ML IV SCH ×2 (01:58→09:00)
[2018-03-06] MEDS: IV NS 0.9% 1,000 ML IV PRN (05:11)
[2018-03-06] MEDS: PIPERACILLIN /TAZOBACTAM 3.375 G in IV D5W 50 ML IV SCH ×3 (05:15→17:37)
[2018-03-06] MEDS: INSULIN REGULAR, HUMAN 100 UNIT/ML 3 ML VIAL SQ PRN ×4 (05:23→17:43)
--- NOTE | 2018-03-06 06:41 | NUR ---
MS RN CLOSING NOTES: PATIENT IN BED, AOX3, ON ROOM AIR, BREATHING EVEN AND UNLABORED. APPEARS CALM AND IN NO DISTRESS. PIV OVER R HAND G 18 INTACT AND INFUSING WELL WITH NS RUNNING AT 75 ML/HR. LEFT LEG WITH CLEAN AND INTACT DRESSING, ATTACHED TO CONTINUOUS WOUND VAC AT 125 MMHG. NOTED ABOUT 10 ML INCREASE IN AMOUNT OF SEROSANGUINEOUS FLUID IN COLLECTION CHAMBER, NOW AT ABOUT 65 ML LEVEL. DUE MEDS GIVEN. PROVIDED FOR COMFORT AND SAFETY. BED IN LOWEST AND LOCKED POSITION, SIDERAILS UP X 3, CALL LIGHT WITHIN REACH. NO ACUTE CHANGE IN CONDITION NOTED THROUGH SHIFT. WILL ENDORSE TO AM RN FOR JOSE RAFAEL.
--- NOTE | 2018-03-06 07:20 | NUR ---
RN NOTES PATIENT A/OX4, BREATHING EVEN AND UNLABORED, NO SOB NOTED, C/O LEFT LEG/KNEE PAIN 04/28, OFFERED NORCO AND WILL ADMINISTER, WOUNDVAC IN PLACED WITH 65ML OUTPUT AT THIS TIME, AWAITING FOR VANCO TROUGH TO BE DRAWN, PATIENT REPORTED HE HAS HAD 2 EPISODE OF LOOSE BM SINCE THIS AM, INFORMED PATIENT WILL COLLECT THE 3RD STOOL AND WILL INFORM MD. NEEDS ATTENDED, CALL LIGHT WITHIN REACH, WILL CONTINUE TO MONITOR.
[2018-03-06 08:00] VITALS: BP 155/101
[2018-03-06] MEDS: HYDROCODONE/APAP 10/325MG 1 EA TABLET PO PRN ×2 (08:50→17:35)
[2018-03-06] MEDS: GABAPENTIN 400 MG CAPSULE PO SCH ×3 (08:52→16:23)
[2018-03-06] MEDS: BENAZEPRIL HCL 10 MG TABLET PO SCH (08:52)
[2018-03-06] MEDS: AMLODIPINE BESYLATE 5 MG TABLET PO SCH (08:52)
[2018-03-06 09:19] LABS: BASOPHILS % (AUTO) 0.5 % (0.0-2.0); EOSINOPHILS % (AUTO) 1.3 % (0.0-6.0); HEMATOCRIT 38 % (39-51); HEMOGLOBIN 12.6 g/dL (13.5-17.5); LYMPHOCYTES # (AUTO) 1.4 /CMM (0.8-4.8); LYMPHOCYTES % (AUTO) 19.4 % (20.0-44.0); MEAN CORPUSCULAR HGB CONC 34 g/dl (31.0-36.0); MEAN CORPUSCULAR VOLUME 90 fL (80-96); MONOCYTES # (AUTO) 0.4 /CMM (0.1-1.30); MONOCYTES % (AUTO) 5.6 % (2.0-12.0); NEUTROPHILS # (AUTO) 5.1 /CMM (1.8-8.9); NEUTROPHILS % (AUTO) 73.2 % (43.0-81.0); PLATELET COUNT (AUTO) 294 /CMM (150-450); RDW COEFFICIENT OF VARIATION 13.1 (11.5-15.0); RED BLOOD CELL COUNT(AUTO) 4.17 MIL/uL (4.5-6.0)
[2018-03-06 09:43] LABS: CALCIUM, SERUM 9.4 mg/dL (8.5-10.1); CREATININE 1.4 mg/dL (0.6-1.3); MAGNESIUM 1.7 mg/dL (1.8-2.4); PHOSPHORUS 3.4 mg/dL (2.5-4.9); POTASSIUM 3.6 mmol/L (3.5-5.1)
--- NOTE | 2018-03-06 10:15 | NUR ---
RN NOTES PATIENT HAD 3RD EPISODE OF LOOSE BM, SENT TO LAB FOR C. DIFF.
[2018-03-06] MEDS ORDERED: Magnesium 1GM/D5W 100ML PREMIX 100 ML IV SCH ×2 (12:00)
--- NOTE | 2018-03-06 12:51 | NUR ---
RN NOTES PATIENT SEEN BY ANKITA FOSS, INFORMED PATIENT HE NEEDS A PICC LINE FOR BLOOD BANK COORDINATOR ANTIBIOTIC AFTER DISCHARGE, PATIENT SIGNED INFORMED CONSENT.
[2018-03-06] MEDS ORDERED: Magnesium 1GM/D5W 100ML PREMIX PIGGYBACK IV ONE (13:00)
[2018-03-06] MEDS: Magnesium 1GM/D5W 100ML PREMIX 100 ML IV SCH ×2 (13:17→14:26)
--- NOTE | 2018-03-06 13:37 | NUR ---
WOUND CARE: KCI VAC FUNCTIONING WELL AT 125mmHg CONTINUOUS SETTING WITH SMALL AMOUNT OF LIGHT RED DRAINAGE IN CANISTER.
[2018-03-06 16:00] VITALS: BP 143/91
[2018-03-06] MEDS: LACTOBACILLUS RHAMNOSUS GG 1 EACH CAP.SPRINK PO SCH (16:23)
[2018-03-06] MEDS: FENTANYL PF 100MCG/2ML AMPUL IV PRN ×2 (16:24→20:45)
[2018-03-06] MEDS ORDERED: VANCOMYCIN 1.25 GM in IV D5W 500 ML IV SCH (18:00)
[2018-03-06] MEDS: HYDROCODONE/APAP 5/325MG 1 EACH TABLET PO PRN (18:36)
--- NOTE | 2018-03-06 19:01 | NUR ---
RN NOTES PATIENT SEEN BY DR. WILKINS, DRESSING CHANGED DONE, WOUNDVAC TURNED BACK ON, PHOTO AND MEASUREMENT TAKEN ([id number]). PATIENT RECEIVED PAIN MEDICATION BEFORE AND AFTER THE PROCEDURE. RECEIVED NEW ORDERS FROM DR. WILKINS TO HAVE PT EVALUATE PATIENT AGAIN AND WANTS CPM FOR ROM EXERCISES FOR LEFT KNEE, GAVE A SPECIFIC ORDER FOR THE CPM MACHINE, UNDER MISCELLANEOUS ORDER. PATIENT'S NEEDS ATTENDED AND MET, NO FURTHER COMPLAIN OF DIARRHEA, CALL LIGHT WITHIN REACH, WILL ENDORSE TO BUSINESS SYSTEMS ADMINISTRATOR FOR JOSE RAFAEL.
[2018-03-06 20:00] VITALS: BP_SYST 129; BP_SYST 134; BP_DIAS 104; BP_DIAS 92
--- NOTE | 2018-03-06 20:00 | NUR ---
MS/RN OPENING NOTES PATIENT IN BED, ABLE TO VERBALIZE NEEDS AT ALL TIMES, SKIN WARM TO TOUCH, REPORTED PAIN OF 8/10, IV PAIN MEDICATION DUE, RESPIRATIONS EVEN AND UNLABORES, ABLEON WOUND VAC, ASSIST WITH AMBULATIONS, ON IV ANTIBIOTIC VANCOMYCIN RUNNING, PROVIDE JELLO FOR SNACK, BLOOD SUGAR TO BE CHECK, CALL LIGHTS WITHIN REACH, BED IN LOCK POSITION. WILL CONTINUE TO PROVIDE CARE. ENDORSEMENT RECEIVE FROM AM RN FOR JOSE RAFAEL.
[2018-03-06] MEDS: CEFTRIAXONE 2 G in IV NS 0.9% 100 ML IV SCH (21:26)
[2018-03-06] MEDS: *INSULIN REGULAR(HUMULIN R)HUM 100 UNIT/ML VIAL SQ PRN (21:50)
[2018-03-06] MEDS ORDERED: INSULIN GLARGINE, 100 UNIT/ML CARTRIDGE SQ SCH (22:00)
[2018-03-06] MEDS: ZOLPIDEM TARTRATE 5 MG TABLET PO PRN (22:35)
[2018-03-07] MEDS: FENTANYL PF 100MCG/2ML AMPUL IV PRN (05:24)
--- NOTE | 2018-03-07 05:32 | NUR ---
ms/rn notes PATIENT REPORTED PAIN LEVEL OF 9/10, ADMINISTER IV FENTANYL ORDERED WILL MONITOR EFFECTIVENESS.
[2018-03-07] MEDS: INSULIN REGULAR, HUMAN 100 UNIT/ML 3 ML VIAL SQ PRN ×2 (06:33→12:18)
[2018-03-07 06:41] LABS: CALCIUM, SERUM 9.3 mg/dL (8.5-10.1); CREATININE 1.2 mg/dL (0.6-1.3); MAGNESIUM 1.9 mg/dL (1.8-2.4); POTASSIUM 3.6 mmol/L (3.5-5.1)
[2018-03-07 06:45] LABS: BASOPHILS % (AUTO) 0.5 % (0.0-2.0); EOSINOPHILS % (AUTO) 1.7 % (0.0-6.0); HEMATOCRIT 38 % (39-51); HEMOGLOBIN 12.6 g/dL (13.5-17.5); LYMPHOCYTES # (AUTO) 1.8 /CMM (0.8-4.8); LYMPHOCYTES % (AUTO) 20.3 % (20.0-44.0); MEAN CORPUSCULAR HGB CONC 33 g/dl (31.0-36.0); MEAN CORPUSCULAR VOLUME 91 fL (80-96); MONOCYTES # (AUTO) 0.6 /CMM (0.1-1.30); MONOCYTES % (AUTO) 6.4 % (2.0-12.0); NEUTROPHILS # (AUTO) 6.2 /CMM (1.8-8.9); NEUTROPHILS % (AUTO) 71.1 % (43.0-81.0); PLATELET COUNT (AUTO) 292 /CMM (150-450); RDW COEFFICIENT OF VARIATION 13.2 (11.5-15.0); RED BLOOD CELL COUNT(AUTO) 4.17 MIL/uL (4.5-6.0); WHITE BLOOD COUNT (AUTO) 8.7 K/uL (4.3-11.0)
--- NOTE | 2018-03-07 06:49 | NUR ---
MS/RN CLOSING NOTES PATIENT IN BED, ABLE TO VERBALIZE NEEDS AT ALL TIMES, ALERT, ORIENTED X3, LAST PAIN MEDICATION GIVEN AT 5AM, ASSIST TO BATHROOM, CAN AMBULATE WITH SUPERVISION, WOUND VAC DRAINING MINIMAL , IV FLUIDS RUNNING NS AT 75ML/HR, PICC LINE ON LEFT AC WITH NO S/S OF INFILTRATION, WILL CONTINUE TO MONITOR, WILL ENDORSE TO AM RN FOR JOSE RAFAEL, BLOOD SUGAR CHECK AT 142, BED IN LOCK POSITION. CALL LIGHTS WITHIN REACH.
--- NOTE | 2018-03-07 07:15 | NUR ---
RN NOTES: PATIENT RESTING IN BED. NONLABORED BREATHING NOTED ON ROOM AIR. PATIENT DENYING PAIN. PICC LINE ON LEFT ARM PATENT AND INTACT. BED IN LOWEST LOCKED POSITION. CALL LIGHT WITHIN REACH
--- NOTE | 2018-03-07 07:28 | NUR ---
JUNIOR ACCOUNTANT BOOKKEEPER PER SURGEON, [employer]CI VAC DRESSING CHANGES WILL BE DONE BY HIM WHILE PATIENT IS IN THE HOSPITAL. ONCE PATIENT GOES HOME, NEGATIVE PRESSURE WOUND THERAPY TO CONTINUE AT HOME WITH HOME HEALTH PERFORMING THE NPWT DRESSING CHANGES PER SURGEON ORDERS. ALL DISCUSSED WITH CASE MANAGEMENT. WOUND MEASUREMENTS NOTED IN SURGEON PROGRESS NOTE.
[2018-03-07 08:00] VITALS: BP 134/81
[2018-03-07] MEDS: BLOOD SUGAR DIAGNOSTIC 1 EACH STRIP IN SCH ×3 (08:05→16:31)
[2018-03-07] MEDS: GABAPENTIN 400 MG CAPSULE PO SCH ×3 (09:44→16:23)
[2018-03-07] MEDS: LACTOBACILLUS RHAMNOSUS GG 1 EACH CAP.SPRINK PO SCH ×2 (09:45→16:23)
[2018-03-07] MEDS: BENAZEPRIL HCL 10 MG TABLET PO SCH (09:45)
[2018-03-07] MEDS: AMLODIPINE BESYLATE 5 MG TABLET PO SCH (09:45)
[2018-03-07] MEDS: IV NS 0.9% 1,000 ML IV PRN (10:39)
[2018-03-07] MEDS: HYDROCODONE/APAP 10/325MG 1 EA TABLET PO PRN (10:45)
[2018-03-07] MEDS ORDERED: INSU100I30 SQ (11:33)
[2018-03-07] MEDS ORDERED: HYDR-3972 PO (11:33)
[2018-03-07] MEDS ORDERED: BENA10TA9 PO (11:33)
[2018-03-07] MEDS ORDERED: GABA400C PO (11:33)
[2018-03-07] MEDS ORDERED: CEFT2VIA13 IV (11:33)
[2018-03-07] MEDS ORDERED: DOCU-141 PO (11:33)
[2018-03-07] MEDS ORDERED: LACT1CAP72 PO (11:33)
[2018-03-07 16:00] VITALS: BP 126/94
[2018-03-07] MEDS: CEFTRIAXONE 2 G in IV NS 0.9% 100 ML IV SCH (19:03)
--- NOTE | 2018-03-07 19:20 | NUR ---
RN NOTES: PATIENT DISCHARGED HOME PER ANKITA TOW FEEDER ORDERS. PATIENT STABLE. NONLABORED BREATHING NOTED ON ROOM AIR. DENYING PAIN. PICC LINE ON LEFT UPPER ARM PATENT AND INTACT. PATIENT STABLE. WOUND DRESSING INTACT ON LEFT KNEE. NEW WOUND VAC DELIVERED AND CONNECTED TO SAME PRESSURE RATE. PATIENT EDUCATED ON PRESCRIPTIONS, INSULIN USAGE, DIABETES AND DIET, GLUCOMETER USAGE. DISCUSSED WITH PATIENT TOW FEEDER'S INSTRUCTIONS TO FOLLOW UP WITH PRIMARY HEALTH CARE PROVIDER,ORTHO, DR WARE(INFO GIVEN), AND PAIN MANAGMENT. PATIENT TO RECEIVE HOME HEALTH WITH PT. EXISTCARE SIGNED. ALL BELONGINGS WITH PATIENT. ENDORSED TO WENDY DEE
--- NOTE | 2018-03-07 19:30 | NUR ---
MS RN OPENING NOTES: RECEIVED PT IN BED AND IS SITTING UP. PT IS ON ROOM AIR AND TOLERATING WELL. PT A/OX4 AND AWAITING FOR DISCHARGE. PT HAS IV BEING INFUSED WITH NS AT 75ML/HR. PT ALSO WOUND VAC ON L KNEE AND IS TO GO HOME WITH PORTABLE ONE SET UP BY HOME HEALTH. PT TO GO HOME WITH PICC LINE. CALL LIGHT WITHIN PT'S REACH. BED KEPT IN LOW, LOCKED POSITION, AND SIDE RAILS X 2UP. WILL CONTINUE TO MONITOR PT.
--- NOTE | 2018-03-07 20:40 | NUR ---
MS RN NOTES: CALLED ONE CALL CASE MANAGEMENT AND CONFIRMED TO SEE IF PT IS GETTING PICKED UP BY [facility]. PT IS TO BE PICKED UP AND WAS ARRANGED ALREADY. SPOKE WITH ASH.
--- NOTE | 2018-03-07 20:50 | NUR ---
MS RN NOTES: ONE CALL CASE MANAGEMENT ARRANGED LYFT TEST ENG FOR [place] [id number] [place], [address] ; PT GOT PICKED UP BY SPORTS INSTRUCTOR CHAZ MORALES . PT ESCORTED WITH SECURITY OFFICER AND NURSE. PT LEFT WITH PICC LINE WELL HOME HEALTH WILL SEE PT TOMORROW AT HIS HOME IN THE AM. PT LEFT IN STABLE CONDITION.
== END 2018-03-07 20:50 | disposition home health service (06) | DRG 856 ==
LOC: ER 19:09 → MED 21:14
PROVIDERS: ADMIT Internal Medicine; ATTEND Internal Medicine
DX: T81.4XXA Infection following a procedure, initial encounter (principal); N17.0 Acute kidney failure with tubular necrosis; E44.0 Moderate protein-calorie malnutrition; L02.416 Cutaneous abscess of left lower limb; Z68.41 Body mass index [BMI] 40.0-44.9, adult; E87.1 Hypo-osmolality and hyponatremia; L03.116 Cellulitis of left lower limb; E11.22 Type 2 diabetes mellitus with diabetic chronic kidney disease; E66.01 Morbid (severe) obesity due to excess calories; E11.65 Type 2 diabetes mellitus with hyperglycemia; I12.9 Hypertensive chronic kidney disease with stage 1 through stage 4 chronic kidney disease, or unspecified chronic kidney disease; N18.9 Chronic kidney disease, unspecified; E78.5 Hyperlipidemia, unspecified; K21.9 Gastro-esophageal reflux disease without esophagitis; Z87.891 Personal history of nicotine dependence; B95.1 Streptococcus, group B, as the cause of diseases classified elsewhere; E83.42 Hypomagnesemia
CPT/HCPCS: 36415; 36569; 71045-TC; 80048-TC; 80076-TC; 80202-TC; 82962-TC; 83735-TC; 84100-TC; 85025-TC; 85652-TC; 85730-TC; 86140; 87070-TC; 87081-TC; 97760-TC; A4217; A6253; A6402; A6403; C1751; J0330; J0696; J1100; J1815; J2270; J2405; J2543; J2704; J2710; J3010; J3370; J3475; J3490; J7030; J7040; J7060; Z7610